=== PATIENT | female | born 1980 | race Caucasian/White ===

== ENCOUNTER 2016-08-21 20:23 | Inpatient (IN) | payer BC, OTHER ==
[~2016-08-21] VITALS: Ht 160 cm; Wt 87.3 kg
[2016-08-21 20:15] VITALS: BP 117/62
[2016-08-21] MEDS ORDERED: D5 LR IV SOLUTION 1,000 ML IV ONE (21:00)
[2016-08-21] MEDS ORDERED: diphenhydrAMINE 25 MG TAB (BENADRYL) PO PRN (21:00)
[2016-08-21] MEDS ORDERED: LACT1CAP74 PO (21:18)
[2016-08-21] MEDS ORDERED: FERR-84 PO (21:18)
[2016-08-21] MEDS ORDERED: CHOL100048 PO (21:18)
[2016-08-21] MEDS ORDERED: LANS30CA43 PO (21:18)
[2016-08-21] MEDS: MISOPROSTOL 100 MCG (CYTOTEC) TAB PV SCH (21:53)
[2016-08-21 22:05] VITALS: BP 110/62
[2016-08-21] MEDS: D5 LR IV SOLUTION 1,000 ML IV SCH (22:28)
[2016-08-21 22:35] LABS: BASOPHILS % (AUTO) 0 % (0-10); EOSINOPHILS # (AUTO) 0.2 10^3/uL (0.0-0.3); EOSINOPHILS % (AUTO) 1 % (0-10); LYMPHOCYTES # (AUTO) 2.7 X 10^3 (1.0-4.0); LYMPHOCYTES % (AUTO) 16 % (12-44); MEAN CORPUSCULAR HEMOGLOBIN 32 PG (25-34); MEAN CORPUSCULAR HGB CONC 34 G/DL (32-36); MEAN CORPUSCULAR VOLUME 94 FL (80-99); MEAN PLATELET VOLUME 10.3 FL (7.4-10.4); MONOCYTES # (AUTO) 1.2 X 10^3 (0.0-1.0); MONOCYTES % (AUTO) 7 % (0-12); NEUTROPHILS # (AUTO) 12.7 X 10^3 (1.8-7.8); NEUTROPHILS % (AUTO) 76 % (42-75); PLATELET COUNT 342 10^3/uL (130-400); RED BLOOD COUNT 3.64 10^6/uL (4.35-5.85); RED CELL DISTRIBUTION WIDTH 13.2 % (10.0-14.5); WHITE BLOOD COUNT 16.9 10^3/uL (4.3-11.0)
[2016-08-21 22:49] LABS: BAND NEUTROPHILS 0 %; BASOPHILS % (MANUAL) 0 %; EOSINOPHILS % (MANUAL) 1 %; LYMPHOCYTES % (MANUAL) 16 %; NEUTROPHILS % (MANUAL) 78 %
[2016-08-22] VITALS (72 sets, daily range): BP systolic 88–129; BP diastolic 49–79
[2016-08-22] MEDS: MISOPROSTOL 100 MCG (CYTOTEC) TAB PV SCH ×2 (01:31→05:27)
[2016-08-22] MEDS ORDERED: CATHETER FLUSH 10 ML SYR IV SCH (06:00)
[2016-08-22] MEDS ORDERED: MINERAL OIL CONCENTRATE 99.9% 15 ML UDC TOP PRN (08:00)
[2016-08-22] MEDS ORDERED: OXYTOCIN/NORMAL SALINE 500 ML IV ONE (09:02)
[2016-08-22] MEDS: OXYTOCIN/NORMAL SALINE 500 ML IV SCH (09:23)
[2016-08-22] MEDS: D5 LR IV SOLUTION 1,000 ML IV SCH ×2 (09:23→17:30)
--- NOTE | 2016-08-22 11:48 | History & Physical-OB ---
OB - Chief Complaint & HPI Date Date of Admission: Date of Admission: Aug 21, 2016 at 20:23 Chief Complaint/History OB-Reason for Admission/Chief: Induction of Labor Hx : 1 Hx Para: 0 Expected Date of Delivery: Aug 18, 2016 Gestational Age in Weeks: 40 Gestational Age in Days: 4 Indication for induction: post dates, other (AMA) Other reason for admission: 35 y/o G1 @ 40w4d by 6 wk sono here for scheduled IOL. c/b: AMA - normal cffDNA, declined NT, survey WNL Anxiety - has weaned from lexapro for several weeks, plans to restart Rh neg s/p RhoGAM first trim for bleeding and 28 wga GERD on PPI Denies complaints, fetus active, no LOF VB CTX prior to scheduled IOL. History of Labs A neg Antibody neg RI Hep B neg HIV neg RPR NR GC/CT neg/neg GBS neg Allergies and Home Medications Allergies Coded Allergies: No Known Drug Allergies (Unverified , 08/21/16) Home Medications Cholecalciferol (Vitamin D3) 1,000 Unit Capsule 1,000 UNIT PO DAILY (Reported) Ferrous Sulfate 325 Mg Tablet 325 MG PO DAILY (Reported) Lactobacillus Combination No.4 1 Each Capsule 1 EACH PO DAILY (Reported) Lansoprazole 30 Mg Capsule.dr 30 MG PO DAILY (Reported) OB - History Hx of Present Care: No Ultrasounds: Normal mid trimester US Obstetrical Complications: Other (AMA, anxiety) Medical Complications: None Information Induced Hypertension: No Maternal Gestational Diabetes: No Hemorrhage: No Obstetrical History Hx : 1 Hx Para: 0 Patient Past Medical History see above Social History/Family History Recent Infectious Disease Expo: No Alcohol Use: Denies Use Recreational Drug Use: No Immunizations Tetanus Booster (TDap): Less than 5yrs (05/31/16) Date of Influenza Vaccine: Apr 18, 2016 OB - Admission Exam Physical Exam Vitals: Vital Signs 08/22/16 08/22/16 06:15 07:00 Temp 98.1 Pulse 63 Resp 18 B/P 100/53 O2 Delivery Room Air HEENT: NCAT Heart: Rhythm Normal Abdomen: Gravid Cervical Dilatation: 1cm Effacement: 50% Station: -3 Membranes: Intact Heart Rate: 140's Accelerations: Accelerations Present Decelerations: No Decelerations Short Term Variability: Present Group Home Variability: Average (6-25) Contractions on Admission: 6-10 Minutes Apart Jack Scoring Tool (Modified) Dilation (cm): 1-2cm (1) Effacement (%): 51-79% (2) Descent/Station: -3 (0) Cervix Consistency: Medium(1) Cervix Position: Middle/Mid-Position (1) Subtract 1 point for: Nulliparity (-1) Jack Score: 4 Labs Laboratory Tests Test 08/21/16 20:30 Range/Units Band Neutrophils 0 % Basophils # (Auto) 0.0 0.0-0.1 10^3/uL Basophils % (Manual) 0 % Basophils (%) (Auto) 0 0-10 % Blood Morphology Comment NORMAL Eosinophils # (Auto) 0.2 0.0-0.3 10^3/uL Eosinophils % (Manual) 1 % Eosinophils (%) (Auto) 1 0-10 % Hematocrit 34 L 35-52 % Hemoglobin 11.7 11.5-16.0 G/DL Lymphocytes # (Auto) 2.7 1.0-4.0 X 10^3 Lymphocytes % (Manual) 16 % Lymphocytes (%) (Auto) 16 12-44 % Mean Corpuscular Hemoglobin 32 25-34 PG Mean Corpuscular Hemoglobin Concent 34 32-36 G/DL Mean Corpuscular Volume 94 80-99 FL Mean Platelet Volume 10.3 7.4-10.4 FL Monocytes # (Auto) 1.2 H 0.0-1.0 X 10^3 Monocytes % (Manual) 5 % Monocytes (%) (Auto) 7 0-12 % Neutrophils # (Auto) 12.7 H 1.8-7.8 X 10^3 Neutrophils % (Manual) 78 % Neutrophils (%) (Auto) 76 H 42-75 % Platelet Count 342 130-400 10^3/uL Red Blood Count 3.64 L 4.35-5.85 10^6/uL Red Cell Distribution Width 13.2 10.0-14.5 % White Blood Count 16.9 H 4.3-11.0 10^3/uL OB - Assessment/Plan/Diagnosis Assessment Assessment: induction of labor Plan Other Plan 35 y/o G1 @ 40w4d by 6 wk sono here for IOL due to AMA GBS neg Rh neg Anxiety S/p cytotec x 3 doses. Attempted cook balloon placement without success. Will start pitocin and consider AROM in several hours. CLD ASVD Dr. Joshua murphy Restart lexapro for anxiety MARIA EUGENIA VALERA MD Aug 22, 2016 11:48
[2016-08-22] MEDS: fentaNYL INJECTION 100 MCG/2 ML AMP IV PRN ×2 (13:33→15:25)
--- NOTE | 2016-08-22 15:10 | Progress Note-Standard ---
Standard Progress Note Progress Notes/Assess & Plan Date Seen 08/22/16 Assess & Plan/Chief Complaint HD#2 labor update note Cramping Vital Sign - Last 12Hours 08/22/16 08/22/16 08/22/16 08/22/16 04:00 05:35 06:15 07:00 Temp 98.1 Pulse 70 66 67 63 Resp 18 18 18 18 B/P 107/55 118/65 99/51 100/53 O2 Delivery Room Air Room Air Room Air Room Air Intake and Output 08/22/16 00:00 Intake Total 500 ml Balance 500 ml Gen NAD SVE: /-3 TOCO uterine irritability 35 y/o G1 @ 40w4d by 6 wk sono here for IOL due to AMA GBS neg Rh neg Anxiety S/p cytotec x 3 doses. Cook balloon placed and continue pitocin CLD ASVD Dr. Joshua murphy Restart lexapro for anxiety Labs Laboratory Tests 08/21/16 20:30 MARIA EUGENIA VALERA MD Aug 22, 2016 15:10
[2016-08-22] MEDS ORDERED: LACTATED RINGERS 1,000 ML IV ONE (21:50)
[2016-08-22] MEDS ORDERED: LIDOCAINE PF 2% 10 ML (XYLOCAINE) AMP ONE (21:55)
[2016-08-22] MEDS ORDERED: SUFENTA 0.6MCG/ML BUPIVA 0.125 100 ML ONE (21:55)
[2016-08-22] MEDS ORDERED: BUPIVACAINE 0.25% 30 ML (SENSORCAINE) VIAL ONE (21:55)
[2016-08-22] MEDS: EPIDURAL (SUFENTA 0.6MCG/ML BUPIVA 0.125%) 100 ML BAG EPI SCH (22:50)
[2016-08-22] MEDS ORDERED: LACTATED RINGERS 1,000 ML IV SCH (22:55)
[2016-08-22] MEDS ORDERED: ONDANSETRON 4 MG/2 ML (SDV) Z0FRAN IV PRN (23:00)
[2016-08-22] MEDS ORDERED: METOCLOPRAMIDE INJ 10 MG/2 ML (REGLAN) IV PRN (23:00)
[2016-08-22] MEDS ORDERED: NALOXONE 0.4 MG/ML 1 ML (NARCAN) VIAL IV PRN ×2 (23:00)
[2016-08-22] MEDS ORDERED: diphenhydrAMINE 50 MG/ML INJ (BENADRYL) IV PRN (23:00)
[2016-08-23] VITALS (58 sets, daily range): BP systolic 88–150; BP diastolic 48–74
[2016-08-23] MEDS: D5 LR IV SOLUTION 1,000 ML IV SCH ×3 (00:26→12:33)
[2016-08-23] MEDS: EPIDURAL (SUFENTA 0.6MCG/ML BUPIVA 0.125%) 100 ML BAG EPI SCH (05:10)
--- NOTE | 2016-08-23 08:11 | Progress Note-Standard ---
Standard Progress Note Progress Notes/Assess & Plan Date Seen 08/23/16 Assess & Plan/Chief Complaint HD#3 labor update note Comfortable with epidural Slept overnight VS - Last 72 Hours, by Label 08/21/16 08/21/16 08/22/16 08/22/16 20:15 22:05 01:30 02:00 Temp 97.9 97.8 97.3 Pulse 93 71 67 68 Resp 18 18 18 18 B/P 117/62 110/62 121/55 99/55 O2 Delivery Room Air Room Air 08/22/16 08/22/16 08/22/16 08/22/16 03:00 04:00 05:35 06:15 Temp 98.1 Pulse 57 70 66 67 Resp 18 18 18 18 B/P 107/53 107/55 118/65 99/51 O2 Delivery Room Air Room Air Room Air Room Air 08/22/16 08/22/16 08/22/16 08/22/16 07:00 07:30 08:00 08:30 Temp 98.5 97.0 Pulse 63 68 Resp 18 18 18 18 B/P 100/53 118/58 O2 Delivery Room Air Room Air Room Air Room Air 08/22/16 08/22/16 08/22/16 08/22/16 09:00 09:00 09:15 09:30 Pulse 68 68 68 Resp 18 18 18 18 B/P 113/56 113/56 113/56 O2 Delivery Room Air Room Air Room Air Room Air 08/22/16 08/22/16 08/22/16 08/22/16 09:45 10:00 10:15 10:30 Pulse 75 71 62 Resp 18 18 18 18 B/P 125/60 105/52 118/59 O2 Delivery Room Air Room Air Room Air Room Air 08/22/16 08/22/16 08/22/16 08/22/16 10:45 11:00 11:15 11:30 Pulse 76 74 74 66 Resp 18 18 18 18 B/P 118/59 111/58 111/57 100/49 O2 Delivery Room Air Room Air Room Air Room Air 08/22/16 08/22/16 08/22/16 08/22/16 11:45 12:00 12:00 12:15 Pulse 64 61 76 65 Resp 18 18 18 18 B/P 93/51 91/50 113/56 91/53 O2 Delivery Room Air Room Air Room Air Room Air 2/20/17 2/20/17 2/20/17 2/20/17 12:30 12:45 13:00 13:15 Temp 98.7 Pulse 66 107 65 76 Resp 18 18 18 18 B/P 104/59 107/56 114/56 116/56 O2 Delivery Room Air Room Air Room Air Room Air 2/20/17 2/20/17 2/20/17 2/20/17 13:30 13:45 14:00 14:15 Pulse 55 69 55 68 Resp 18 18 18 18 B/P 119/56 114/79 105/57 109/51 O2 Delivery Room Air Room Air Room Air Room Air 2/20/17 2/20/17 2/20/17 2/20/17 14:30 14:45 15:00 15:15 Pulse 55 54 62 66 Resp 18 18 18 18 B/P 96/54 95/54 110/54 110/53 O2 Delivery Room Air Room Air Room Air Room Air 220/17 2/20/17 2/20/17 2/2017 15:30 15:45 16:00 19:15 Pulse 63 65 64 62 Resp 18 18 18 18 B/P 117/56 112/63 105/53 115/55 O2 Delivery Room Air Room Air Room Air Room Air 220/17 2/20/17 2/20/17 2/2017 19:30 19:45 20:00 20:15 Pulse 81 63 70 75 Resp 18 18 18 18 B/P 115/58 119/57 111/67 108/61 O2 Delivery Room Air Room Air Room Air Room Air 220/17 2/20/17 2/20/17 2/20/17 20:30 20:45 21:00 21:15 Temp 98.4 Pulse 77 71 68 Resp 18 18 18 B/P 111/55 113/55 129/55 O2 Delivery Room Air Room Air Room Air Room Air 2/20/17 2/20/17 2/20/17 2/20/17 21:30 21:45 22:00 22:15 Temp 98.1 Pulse 65 65 77 77 Resp 18 18 18 18 B/P 95/52 88/50 110/52 107/54 O2 Delivery Room Air Room Air Room Air Room Air 2/20/17 2/20/17 2/20/17 2/20/17 22:30 22:34 22:37 22:40 Pulse 73 66 74 75 Resp 18 18 18 18 B/P 117/56 114/58 119/64 110/56 O2 Delivery Room Air Room Air Room Air Room Air 08/22/16 08/22/16 08/22/16 08/22/16 22:43 22:46 22:49 22:52 Pulse 75 78 66 71 Resp 18 18 18 18 B/P 103/56 104/55 99/56 96/52 O2 Delivery Room Air Room Air Room Air Room Air 08/22/16 08/22/16 08/22/16 08/22/16 22:55 22:58 23:04 23:08 Pulse 75 71 67 Resp 18 18 18 B/P 96/51 105/53 93/51 Pulse Ox 98 O2 Delivery Room Air Room Air Room Air Room Air 08/22/16 08/22/16 08/22/16 08/22/16 23:10 23:13 23:16 23:19 Pulse 65 65 60 66 Resp 18 18 18 18 B/P 93/52 94/52 101/59 99/55 O2 Delivery Room Air Room Air Room Air Room Air 08/22/16 08/23/16 08/23/16 08/23/16 23:45 00:00 00:15 00:30 Pulse 56 56 57 57 Resp 18 18 18 18 B/P 106/55 88/53 90/51 90/48 O2 Delivery Room Air Room Air Room Air Room Air 08/23/16 08/23/16 08/23/16 08/23/16 00:45 01:00 01:15 01:30 Pulse 52 63 63 52 Resp 18 18 18 18 B/P 94/55 94/51 88/51 99/55 O2 Delivery Room Air Room Air Room Air Room Air 08/23/16 08/23/16 08/23/16 08/23/16 01:45 02:00 02:15 02:30 Pulse 59 63 58 59 Resp 18 18 18 18 B/P 119/65 110/59 104/59 106/52 O2 Delivery Room Air Room Air Room Air Room Air 08/23/16 08/23/16 08/23/16 08/23/16 02:45 03:00 03:15 03:30 Pulse 60 56 72 55 Resp 18 18 18 18 B/P 113/57 105/58 113/63 106/55 O2 Delivery Room Air Room Air Room Air Room Air 08/23/16 08/23/16 08/23/16 08/23/16 03:45 04:00 04:15 04:30 Pulse 59 54 51 51 Resp 18 18 18 18 B/P 102/55 106/58 107/56 103/55 O2 Delivery Room Air Room Air Room Air Room Air 08/23/16 08/23/16 08/23/16 08/23/16 04:45 05:00 05:15 05:30 Temp 98.4 Pulse 55 53 58 Resp 18 18 18 B/P 100/52 106/56 96/51 O2 Delivery Room Air Room Air Room Air 08/23/16 08/23/16 08/23/16 08/23/16 05:45 06:00 06:15 06:30 Pulse 54 54 53 57 Resp 18 18 18 18 B/P 103/55 101/55 98/53 102/51 O2 Delivery Room Air Room Air Room Air Room Air 08/23/16 08/23/16 06:45 07:00 Pulse 58 61 Resp 18 18 B/P 107/59 102/53 O2 Delivery Room Air Room Air Gen NAD SVE: /-1 FHT 140/mod dulce/reactive TOCO 08/12 35 y/o G1 @ 40w5d by 6 wk sono here for IOL due to AMA GBS neg Rh neg Anxiety S/p cytotec x 3 doses. Cook balloon placed and removed after 12 hours, continue pitocin. Attempted AROM this AM but no palpable BOW CLD ASVD Dr. Joshua murphy Restart lexapro for anxiety Labs Laboratory Tests 08/21/16 20:30 MARIA EUGENIA VALEAR MD Aug 23, 2016 08:11
[2016-08-23] MEDS ORDERED: LIDOCAINE/EPI 1%-1:200,000 (XYLOCAINE) 30 ML VIAL ONE (11:53)
[2016-08-23] MEDS: OXYTOCIN/NORMAL SALINE 500 ML IV SCH ×4 (12:33→17:46)
[2016-08-23] MEDS ORDERED: LIDOCAINE/EPI 1%-1:200,000 (XYLOCAINE) 30 ML VIAL INJ ONE (12:45)
[2016-08-23] MEDS ORDERED: fentaNYL INJECTION 100 MCG/2 ML AMP IVP PRN (15:45)
[2016-08-23] MEDS ORDERED: CITRIC ACID/SOB CIT (BICITRA) 30 ML UDC ONE (15:50)
[2016-08-23] MEDS ORDERED: OXYTOCIN/NORMAL SALINE 1,000 ML IV ONE (15:50)
[2016-08-23] MEDS ORDERED: morphine PF (DURAMORPH) 10 MG/10 ML AMP ONE (15:50)
[2016-08-23] MEDS ORDERED: ONDANSETRON 4 MG/2 ML (SDV) Z0FRAN ONE (15:50)
[2016-08-23] MEDS ORDERED: FAMOTIDINE 20MG/2ML IV (PEPCID) ONE (15:51)
--- NOTE | 2016-08-23 15:57 | Progress Note-Standard ---
Standard Progress Note Progress Notes/Assess & Plan Date Seen 08/23/16 Assess & Plan/Chief Complaint HD#3 Called to assess after several hours of pushing without success. Position changes attempted. Epidural turned off for over two hours. Pt is asking for delivery. SVE complete/-1 station, caput noted to 0 station (no change since last exam). FHR reactive. I discussed with Clair and her that at this point, with no descent for several hours of pushing, I do recommend delivery at this time. Risks , benefits and alternatives discussed including bleeding, infection, damage to surrounding structures of mother/fetus. Clair agrees with the plan. To OR for primary CD. [employer] aware and on unit. Labs Laboratory Tests 08/21/16 20:30 MARIA EUGENIA VALERA MD Aug 23, 2016 15:57
--- NOTE | 2016-08-23 16:04 | Cesarean Section Operative ---
Procedure Procedure Note Date of Procedure: August 23, 2016 Pre-operative Diagnosis: Shey Bhakta is a 35 y/o G1 @ 40w5d with failed induction of labor, arrest of descent, AMA, Rh negative Post-operative Diagnosis: Same Procedure: Primary low transverse section Physician: Angie Mae MD Estimated blood loss: 400 mL Specimens: Placenta to pathology, cord blood/gas to lab Disposition: Stable to recovery room Findings: Viable female infant, Apgars 8/9, weight 7lb1oz, intact placenta, 3vc, normal appearing uterus, tubes, and ovaries. Indications: Shey Bhakta is a 35 y/o G1 @ 40w5d presenting for scheduled induction of labor. She underwent cervical ripening with cytotec and subsequently a cook balloon for 12 hours. Pitocin was started for induction. SROM occurred with clear fluid. Epidural was placed for analgesia. She progressed to completion and pushed effectively, however the head never descended past -1 station. Procedure Details: The patient was seen in pre-op and the procedure was discussed with the patient in full, including the risks, benefits, and alternatives. All questions were answered. The patient was taken to the operating room and a time out was performed, verifying patient and procedure. After spinal anesthesia was placed by our anesthesia colleagues, the patient was placed in the dorsal supine with leftward tilt for uterine displacement. Her abdomen was then prepped and draped in the typical sterile fashion. A Pfannenstiel skin incision was made using a scalpel and carried down through the underlying fascia. The fascia was incised in the midline and tented up using Nelly clamps. On both the inferior and superior fascia side the rectus muscle was dissected off bluntly and sharply using Milan scissors. The peritoneum was identified and entered bluntly in the midline. This was then stretched laterally using manual strength. After entering the abdominal cavity and confirming lack of intraperitoneal adhesions, a large Blake retractor was placed and the lower uterine segment was visualized. A bladder flap was created with the use of Metzenbaum scissors. A scalpel was utilized to make a low transverse uterine incision. The 's head was grasped and brought to the level of the incision. Fundal pressure was applied and infant was delivered with the help of the silastic vacuum device. Mouth and nares were suctioned with bulb suction. After the umbilical cord was clamped and cut, the was handed off to the pediatric staff. A sample of cord blood was then obtained. The placenta was delivered intact via uterine massage. The uterus was cleared of all clots and debris. The uterine incision was closed using 0 Vicryl in a running locked fashion. A second imbricated layer was placed using 0 Vicryl in a running fashion as well. The uterus was flexed forward and the posterior rectouterine space was inspected and cleared of all clots and debris. Again the hysterotomy site was examined and hemostasis was observed. The bilateral tubes and ovaries appeared normal. The abdominal gutters were cleared of all clots and debris. A final check of the uterine incision showed it to be hemostatic. Intercede was placed along the hysterotomy. The peritoneum was closed using 3- 0 Vicryl in a running fashion. The fascia was closed with 0 Vicryl in a running fashion. The subcutaneous space was hemostatic, and irrigated. The subcutaneous space was closed with 3-0 Vicryl in several single interrupted stitches. The skin was then closed using 4-0 Monocryl in a running subcuticular fashion. The skin edges were reapproximated together and were hemostatic. A pressure dressing was applied. All sponge, lap and needle counts were correct at the end of the procedure per nursing. ANGIE MAE MD Aug 23, 2016 16:04
[2016-08-23] MEDS ORDERED: KETOROLAC 30 MG/ML VIAL ONE (16:38)
[2016-08-23] MEDS ORDERED: ceFAZolin 1,000 MG (ANCEF) VIAL ONE (16:38)
[2016-08-23] MEDS ORDERED: LACTATED RINGERS 1,000 ML IV PRN ×2 (16:53)
[2016-08-23] MEDS ORDERED: CITRIC ACID/SOB CIT (BICITRA) 30 ML UDC PO ONE (17:00)
[2016-08-23] MEDS ORDERED: METOCLOPRAMIDE INJ 10 MG/2 ML (REGLAN) IV ONE (17:00)
[2016-08-23] MEDS ORDERED: LACTATED RINGERS 1,000 ML IV ONE (17:00)
[2016-08-23] MEDS ORDERED: FAMOTIDINE 20MG/2ML IV (PEPCID) IV ONE (17:00)
[2016-08-23] MEDS ORDERED: ONDANSETRON 4 MG/2 ML (SDV) Z0FRAN IV PRN (17:15)
[2016-08-23] MEDS ORDERED: morphine PF (DURAMORPH) 10 MG/10 ML AMP INJ ONE (17:15)
[2016-08-23] MEDS ORDERED: NALOXONE 0.4 MG/ML 1 ML (NARCAN) VIAL IV PRN (17:15)
[2016-08-23] MEDS ORDERED: fentaNYL INJECTION 100 MCG/2 ML AMP INJ ONE (17:15)
[2016-08-23] MEDS ORDERED: ceFAZolin 2 GM/50 ML NS 50 ML IV ONE (17:15)
[2016-08-23] MEDS ORDERED: ESCI10TA PO (17:19)
[2016-08-23] MEDS ORDERED: IBUP-1773 PO (17:19)
[2016-08-23] MEDS ORDERED: OXYC-197 PO (17:19)
[2016-08-23] MEDS ORDERED: DOCU-143 PO (17:22)
--- NOTE | 2016-08-23 17:35 | Discharge Inst-Women's Service ---
Discharge Inst-Women's Serv Depart Medication/Instructions New, Converted or Re-Newed RX: RX on Chart Final Diagnosis Term intrauterine , advanced maternal age, arrest of descent, primary delivery Consults/Follow Up Additional Follow Up: Yes Orders/Referrals 10-[address] Mae [address] Mae Activity Activity: Activity as Tolerated Driving Instructions: No Driving for 1 Week (or while taking narcotic pain medications) NO SMOKING: NO SMOKING Nothing Inside Vagina: No Douching, No Maybee, No Tampons Other Activity No strenuous activity, no lifting > 10 lb Diet Discharge Diet: No Restrictions Symptoms to Report to : Bleeding Excessive, Pain Increased, Fever Over 101 Degrees F, Pain/Pressure in Chest, Vaginal Bleeding Increase, Dizziness/Fainting , Nausea/Vomiting, Shortness of Breath For Any Problems or Questions: Contact Your Physician, Go to Emergency Room Skin/Wound Care Infection Signs and Symptoms: Increased Redness, Foul Odor of Wound, Increased Drainage Operative Area Clean and Dry: Keep Incision Clean/Dry Stitches/Karina/Dermabond: Dermabond Bathing Instructions: MARIA EUGENIA Coates MD Aug 23, 2016 17:35
[2016-08-23] MEDS ORDERED: TETANUS,DIPTH,PERTUSS P/F (BOOSTRIX) 0.5 ML VIAL IM SCH (17:45)
[2016-08-23] MEDS ORDERED: ONDANSETRON 4 MG/2 ML (SDV) Z0FRAN IVP PRN (17:45)
[2016-08-23] MEDS ORDERED: MEASLES,MUMPS,RUBELLA 1 EA INJ SC SCH (17:45)
[2016-08-23] MEDS: DOCUSATE SODIUM 100 MG (COLACE) CAP PO SCH (21:55)
[2016-08-23] MEDS: KETOROLAC 30 MG/ML VIAL IVP SCH ×2 (21:55→23:50)
[2016-08-23] MEDS ORDERED: CATHETER FLUSH 10 ML SYR IV SCH (22:00)
[2016-08-24 01:05] VITALS: BP 100/53
[2016-08-24] MEDS ORDERED: IBUPROFEN 800 MG (MOTRIN) TAB PO ONE ×2 (03:16→12:05)
[2016-08-24] MEDS: IBUPROFEN 800 MG (MOTRIN) TAB PO SCH ×2 (03:58→12:08)
[2016-08-24 05:20] VITALS: BP 101/59
[2016-08-24] MEDS: KETOROLAC 30 MG/ML VIAL IVP SCH ×2 (05:45→11:45)
[2016-08-24 05:59] LABS: BASOPHILS % (AUTO) 0 % (0-10); EOSINOPHILS % (AUTO) 0 % (0-10); LYMPHOCYTES # (AUTO) 2.3 X 10^3 (1.0-4.0); LYMPHOCYTES % (AUTO) 9 % (12-44); MEAN CORPUSCULAR HEMOGLOBIN 32 PG (25-34); MEAN CORPUSCULAR HGB CONC 34 G/DL (32-36); MEAN CORPUSCULAR VOLUME 95 FL (80-99); MEAN PLATELET VOLUME 10.3 FL (7.4-10.4); MONOCYTES # (AUTO) 1.9 X 10^3 (0.0-1.0); MONOCYTES % (AUTO) 7 % (0-12); NEUTROPHILS # (AUTO) 21.7 X 10^3 (1.8-7.8); NEUTROPHILS % (AUTO) 83 % (42-75); PLATELET COUNT 288 10^3/uL (130-400); RED BLOOD COUNT 3.09 10^6/uL (4.35-5.85)
--- NOTE | 2016-08-24 08:20 | Postpartum Progress Note ---
Post Op Post-operative Day #1 Subjective: Patient is without complaints. Ambulating, voiding after zapata removed. Tolerating a regular diet without nausea or vomiting. Normal lochia. Pain is well controlled with oral pain medications. Passing flatus. Breast feeding. Objective: Vital Sign - Last 12Hours 08/23/16 08/24/16 08/24/16 22:01 01:05 05:20 Temp 98.3 98.6 97.7 Pulse 67 72 72 Resp 18 18 18 B/P 102/62 100/53 101/59 Pulse Ox 96 97 95 O2 Delivery Room Air Room Air Room Air Intake and Output 08/24/16 00:00 Intake Total 2450 ml Output Total 755 ml Balance 1695 ml Physical Exam: General - Alert and oriented, no apparent distress Abdomen - Soft, appropriately tender to palpation, non-distended, fundus firm at umbilicus Incision - clean, dry and intact; no erythema or induration, no drainage Extremities - no edema, negative Alexandra's bilaterally Laboratory Tests 08/24/16 05:13: Basophils # (Auto) 0.0, Basophils (%) (Auto) 0, Eosinophils # (Auto) 0.0, Eosinophils (%) (Auto) 0, Hematocrit 29L, Hemoglobin 9.9L, Lymphocytes # (Auto) 2.3, Lymphocytes (%) (Auto) 9L, Mean Corpuscular Hemoglobin 32, Mean Corpuscular Hemoglobin Concent 34, Mean Corpuscular Volume 95, Mean Platelet Volume 10.3, Monocytes # (Auto) 1.9H, Monocytes (%) (Auto) 7, Neutrophils # ( Auto) 21.7H, Neutrophils (%) (Auto) 83H, Platelet Count 288, Red Blood Count 3.09L, Red Cell Distribution Width 13.0, White Blood Count 26.0H Assessment: 35 y/o post-operative day # 1, status post PLTCS. Recovering well, hemodynamically stable Acute blood loss anemia Hgb 9.9 Rh neg, infant Rh neg Anxiety GERD Plan: Routine post-operative care. Encourage breast feeding. Encourage ambulation. VTE prophylaxis: SCDs. Ferrous sulfate supplementation. Lexapro for anxiety PPI for GERD Plan for discharge tomorrow. Vitals - Labs Vital Signs - I&O Vital Signs Date Time Temp Pulse Resp B/P Pulse Ox O2 Delivery O2 Flow Rate FiO2 08/24/16 05:20 97.7 72 18 101/59 95 Room Air 08/24/16 01:05 98.6 72 18 100/53 97 Room Air 08/23/16 22:01 98.3 67 18 102/62 96 Room Air 08/23/16 18:00 98.2 74 20 94/58 Room Air I & O 08/24/16 07:00 Intake Total 3050 ml Output Total 1155 ml Balance 1895 ml Labs Laboratory Tests 08/24/16 05:13: Basophils # (Auto) 0.0, Basophils (%) (Auto) 0, Eosinophils # (Auto) 0.0, Eosinophils (%) (Auto) 0, Hematocrit 29L, Hemoglobin 9.9L, Lymphocytes # (Auto) 2.3, Lymphocytes (%) (Auto) 9L, Mean Corpuscular Hemoglobin 32, Mean Corpuscular Hemoglobin Concent 34, Mean Corpuscular Volume 95, Mean Platelet Volume 10.3, Monocytes # (Auto) 1.9H, Monocytes (%) (Auto) 7, Neutrophils # ( Auto) 21.7H, Neutrophils (%) (Auto) 83H, Platelet Count 288, Red Blood Count 3.09L, Red Cell Distribution Width 13.0, White Blood Count 26.0H MARIA EUGENIA VALERA MD Aug 24, 2016 08:20
[2016-08-24] MEDS: DOCUSATE SODIUM 100 MG (COLACE) CAP PO SCH ×2 (08:40→20:53)
[2016-08-24 08:44] VITALS: BP 111/63
[2016-08-24] MEDS ORDERED: PANTOPRAZOLE 40 MG (PROTONIX) TAB PO SCH (09:00)
--- NOTE | 2016-08-24 10:25 | Anesthesia-Regional Post-Op ---
Regional Patient Condition Mental Status: Alert, Oriented x3 Circulation: Same as Pre-Op Headache: Absent Sensation: Full Recovery Motor Block: Absent Post Op Complications Complications None Follow Up Care/Instructions Patient Instructions None needed. Anesthesia/Patient Condition Patient is doing well, no complaints, stable vital signs, no apparent adverse anesthesia problems. No complications reported per nursing. D/C home per [facility] Criteria: No MICHELLE DORAN CRNA Aug 24, 2016 10:25
[2016-08-24] MEDS ORDERED: PATIENT MAY USE OWN MED,SINGLE MED PO SCH (10:30)
[2016-08-24] MEDS: LANSOPRAZOLE 30 MG CAPSULE PO SCH (11:38)
[2016-08-24] MEDS: ESCITALOPRAM 10 MG TABLET PO SCH (11:39)
[2016-08-24 12:04] VITALS: BP 111/70
[2016-08-24] MEDS: oxyCODONE/APAP 5/325MG (PERCOCET 5) TABLET PO PRN ×2 (12:08→17:11)
[2016-08-24 17:07] VITALS: BP 110/75
[2016-08-24 20:54] VITALS: BP 114/77
[2016-08-25] MEDS: IBUPROFEN 800 MG (MOTRIN) TAB PO SCH ×2 (00:43→06:33)
[2016-08-25 00:45] VITALS: BP 97/55
[2016-08-25] MEDS: oxyCODONE/APAP 5/325MG (PERCOCET 5) TABLET PO PRN (00:49)
[2016-08-25] MEDS ORDERED: PANTOPRAZOLE 40 MG (PROTONIX) TAB PO SCH (07:00)
[2016-08-25] MEDS ORDERED: FERROUS SULF 325 MG (IRON) TAB PO SCH (07:00)
--- NOTE | 2016-08-25 08:11 | Postpartum Progress Note ---
Post Op Post-operative Day #2 Subjective: Patient is without complaints. Ambulating, voiding after zapata. Tolerating a regular diet without nausea or vomiting. Normal lochia. Pain is well controlled with oral pain medications. Passing flatus. Breast feeding and supplementing. Does have some edema. No chest pain, SOA. Wants to discharge today if able. Objective: VS - Last 72 Hours, by Label 08/22/16 08/22/16 08/22/16 08/22/16 08:30 09:00 09:00 09:15 Pulse 68 68 68 Resp 18 18 18 18 B/P 113/56 113/56 113/56 O2 Delivery Room Air Room Air Room Air Room Air 08/22/16 08/22/16 208/22/16 09:30 09:45 10:00 10:15 Pulse 75 71 Resp 18 18 18 18 B/P 125/60 105/52 O2 Delivery Room Air Room Air Room Air Room Air 08/22/16 08/22/16 08/22/16 08/22/16 10:30 10:45 11:00 11:15 Pulse 62 76 74 74 Resp 18 18 18 18 B/P 118/59 118/59 111/58 111/57 O2 Delivery Room Air Room Air Room Air Room Air 08/22/16 08/22/16 08/22/16 08/22/16 11:30 11:45 12:00 12:00 Pulse 66 64 61 76 Resp 18 18 18 18 B/P 100/49 93/51 91/50 113/56 O2 Delivery Room Air Room Air Room Air Room Air 08/22/16 08/22/16 08/22/16 08/22/16 12:15 12:30 12:45 13:00 Temp 98.7 Pulse 65 66 107 65 Resp 18 18 18 18 B/P 91/53 104/59 107/56 114/56 O2 Delivery Room Air Room Air Room Air Room Air 08/22/16 2/ 2/08/22/16 13:15 13:30 13:45 14:00 Pulse 76 55 69 55 Resp 18 18 18 18 B/P 116/56 119/56 114/79 105/57 O2 Delivery Room Air Room Air Room Air Room Air 08/22/16 08/22/16 208/22/16 14:15 14:30 14:45 15:00 Pulse 68 55 54 62 Resp 18 18 18 18 B/P 109/51 96/54 95/54 110/54 O2 Delivery Room Air Room Air Room Air Room Air 08/22/16 2/ 2//17 2/ 15:15 15:30 15:45 16:00 Pulse 66 63 65 64 Resp 18 18 18 18 B/P 110/53 117/56 112/63 105/53 O2 Delivery Room Air Room Air Room Air Room Air 08/22/16 2 2//17 2 16:45 17:00 17:15 17:30 Pulse 67 60 130 Resp 18 18 18 18 B/P 115/57 106/65 104/56 O2 Delivery Room Air Room Air Room Air Room Air 08/22/16 2 2 2 17:45 18:00 18:15 18:30 Temp 98.3 Pulse 62 61 59 59 Resp 18 18 18 18 B/P 103/55 105/56 93/52 93/52 O2 Delivery Room Air Room Air Room Air Room Air 08/22/16 08/22/16 2 2 18:45 19:00 19:15 19:30 Pulse 60 61 62 81 Resp 18 18 18 18 B/P 106/51 112/57 115/55 115/58 O2 Delivery Room Air Room Air Room Air Room Air 08/22/16 08/22/16 2/ 2 19:45 20:00 20:15 20:30 Pulse 63 70 75 77 Resp 18 18 18 18 B/P 119/57 111/67 108/61 111/55 O2 Delivery Room Air Room Air Room Air Room Air 08/22/16 2/17 2/20/17 220 20:45 21:00 21:15 21:30 Temp 98.4 Pulse 71 68 65 Resp 18 18 18 B/P 113/55 129/55 95/52 O2 Delivery Room Air Room Air Room Air Room Air 08/22/16 2 2/20/ 2/20 21:45 22:00 22:15 22:30 Temp 98.1 Pulse 65 77 77 73 Resp 18 18 18 18 B/P 88/50 110/52 107/54 117/56 O2 Delivery Room Air Room Air Room Air Room Air 08/22/16 08/22/16 08/22/16 08/22/16 22:34 22:37 22:40 22:43 Pulse 66 74 75 75 Resp 18 18 18 18 B/P 114/58 119/64 110/56 103/56 O2 Delivery Room Air Room Air Room Air Room Air 08/22/16 08/22/16 08/22/16 08/22/16 22:46 22:49 22:52 22:55 Pulse 78 66 71 75 Resp 18 18 18 18 B/P 104/55 99/56 96/52 96/51 O2 Delivery Room Air Room Air Room Air Room Air 08/22/16 08/22/16 08/22/16 08/22/16 22:58 23:04 23:08 23:10 Pulse 71 67 65 Resp 18 18 18 B/P 105/53 93/51 93/52 Pulse Ox 98 O2 Delivery Room Air Room Air Room Air Room Air 08/22/16 08/22/16 08/22/16 08/22/16 23:13 23:16 23:19 23:45 Pulse 65 60 66 56 Resp 18 18 18 18 B/P 94/52 101/59 99/55 106/55 O2 Delivery Room Air Room Air Room Air Room Air 08/23/16 08/23/16 08/23/16 08/23/16 00:00 00:15 00:30 00:45 Pulse 56 57 57 52 Resp 18 18 18 18 B/P 88/53 90/51 90/48 94/55 O2 Delivery Room Air Room Air Room Air Room Air 08/23/16 08/23/16 08/23/16 08/23/16 01:00 01:15 01:30 01:45 Pulse 63 63 52 59 Resp 18 18 18 18 B/P 94/51 88/51 99/55 119/65 O2 Delivery Room Air Room Air Room Air Room Air 08/23/16 08/23/16 08/23/16 08/23/16 02:00 02:15 02:30 02:45 Pulse 63 58 59 60 Resp 18 18 18 18 B/P 110/59 104/59 106/52 113/57 O2 Delivery Room Air Room Air Room Air Room Air 08/23/16 08/23/16 08/23/1608/23/17 03:00 03:15 03:30 03:45 Pulse 56 72 55 59 Resp 18 18 18 18 B/P 105/58 113/63 106/55 102/55 O2 Delivery Room Air Room Air Room Air Room Air 08/23/16 08/23/16 08/23/16 08/23/16 04:00 04:15 04:30 04:45 Temp 98.4 Pulse 54 51 51 Resp 18 18 18 B/P 106/58 107/56 103/55 O2 Delivery Room Air Room Air Room Air 08/23/16 08/23/16 08/23/16 08/23/16 05:00 05:15 05:30 05:45 Pulse 55 53 58 54 Resp 18 18 18 18 B/P 100/52 106/56 96/51 103/55 O2 Delivery Room Air Room Air Room Air Room Air 08/23/16 08/23/16 08/23/16 08/23/16 06:00 06:15 06:30 06:45 Pulse 54 53 57 58 Resp 18 18 18 18 B/P 101/55 98/53 102/51 107/59 O2 Delivery Room Air Room Air Room Air Room Air 08/23/16 08/23/16 08/23/16 08/23/16 07:00 07:15 07:30 07:45 Temp 98.4 Pulse 61 63 57 63 Resp 18 18 18 18 B/P 102/53 105/65 109/57 105/74 O2 Delivery Room Air Room Air Room Air Room Air 08/23/16 08/23/16 08/23/16 08/23/16 08:00 08:15 08:30 08:45 Pulse 61 61 67 Resp 18 18 18 18 B/P 109/66 115/67 128/67 O2 Delivery Room Air Room Air Room Air Room Air 08/23/16 08/23/16 08/23/16 08/23/16 09:00 09:15 09:30 09:45 Pulse 65 75 67 67 Resp 18 18 18 18 B/P 115/68 117/65 111/70 116/65 O2 Delivery Room Air Room Air Room Air Room Air 08/23/16 08/23/16 08/23/16 08/23/16 10:00 10:15 10:30 10:45 Pulse 72 69 67 68 Resp 18 18 18 18 B/P 118/63 113/60 116/65 114/67 O2 Delivery Room Air Room Air Room Air Room Air 08/23/16 08/23/16 08/23/16 08/23/16 11:00 11:15 11:30 11:45 Temp 97.9 Pulse 71 64 70 70 Resp 18 18 18 18 B/P 110/67 118/64 124/70 121/68 O2 Delivery Room Air Room Air Room Air Room Air 08/23/16 08/23/16 08/23/16 08/23/16 12:00 12:15 12:30 12:45 Temp 98.4 Pulse 71 80 61 Resp 18 18 20 20 B/P 118/67 107/55 93/54 O2 Delivery Room Air Room Air Room Air Room Air 08/23/16 08/23/16 08/23/16 08/23/16 13:00 13:15 13:30 13:45 Pulse 75 67 76 Resp 20 20 20 20 B/P 112/54 112/59 123/61 O2 Delivery Room Air Room Air Room Air Room Air 08/23/16 08/23/16 08/23/16 08/23/16 14:00 14:15 14:30 14:45 Pulse 60 67 67 93 Resp 20 20 20 20 B/P 132/68 122/68 122/68 150/62 O2 Delivery Non Rebreather Non Rebreather Non Rebreather Non Rebreather O2 Flow Rate 15.00 15.00 15.00 15.00 08/23/16 08/23/16 08/23/16 08/23/16 15:00 15:15 15:30 15:45 Resp 20 20 20 20 B/P O2 Delivery Non Rebreather Non Rebreather Non Rebreather Non Rebreather O2 Flow Rate 15.00 15.00 15.00 15.00 08/23/16 08/23/16 08/23/16 08/24/16 16:00 18:00 22:01 01:05 Temp 98.2 98.3 98.6 Pulse 74 67 72 Resp 20 20 18 18 B/P 94/58 102/62 100/53 Pulse Ox 96 97 O2 Delivery Non Rebreather Room Air Room Air Room Air O2 Flow Rate 15.00 08/24/16 08/24/16 08/24/16 08/24/16 05:20 08:44 12:04 17:07 Temp 97.7 98.0 97.9 98.2 Pulse 72 70 76 73 Resp 18 18 18 18 B/P 101/59 111/63 111/70 110/75 Pulse Ox 95 97 96 96 O2 Delivery Room Air Room Air Room Air Room Air 08/24/16 08/25/16 20:54 00:45 Temp 97.7 97.6 Pulse 66 68 Resp 18 18 B/P 114/77 97/55 Pulse Ox 97 94 O2 Delivery Room Air Room Air Physical Exam: General - Alert and oriented, no apparent distress Abdomen - Soft, appropriately tender to palpation, non-distended, fundus firm at umbilicus Incision - clean, dry and intact; no erythema or induration, no drainage Extremities - 1+ pitting edema bilat LE, neg Alexandra's sign, negative Alexandra's bilaterally Assessment: 35 y/o post-operative day # 2, status post PLTCS. Recovering well, hemodynamically stable Acute blood loss anemia Hgb 9.9 Rh neg, infant Rh neg Anxiety GERD Plan: Routine post-operative care. Encourage breast feeding. Encourage ambulation. VTE prophylaxis: SCDs. Ferrous sulfate supplementation. Lexapro for anxiety PPI for GERD Plan for discharge today, f/u with me in 10-14 days for incision check. Vitals - Labs Vital Signs - I&O Vital Signs Date Time Temp Pulse Resp B/P Pulse Ox O2 Delivery O2 Flow Rate FiO2 08/25/16 00:45 97.6 68 18 97/55 94 Room Air 08/24/16 20:54 97.7 66 18 114/77 97 Room Air 08/24/16 17:07 98.2 73 18 110/75 96 Room Air 08/24/16 12:04 97.9 76 18 111/70 96 Room Air 08/24/16 08:44 98.0 70 18 111/63 97 Room Air I & O 08/25/16 07:00 Intake Total 1600 ml Output Total 4950 ml Balance -3350 ml MARIA EUGENIA VALERA MD Aug 25, 2016 08:11
[2016-08-25] MEDS: DOCUSATE SODIUM 100 MG (COLACE) CAP PO SCH (09:16)
[2016-08-25] MEDS: ESCITALOPRAM 10 MG TABLET PO SCH (09:17)
[2016-08-25] MEDS: LANSOPRAZOLE 30 MG CAPSULE PO SCH (09:17)
[2016-08-25 09:25] VITALS: BP 121/68
[2016-08-25 12:40] VITALS: BP 97/55
== END 2016-08-25 12:40 | disposition home or self-care (01) | DRG 765 ==
LOC: LDRP 20:23 → MERGE 20:23 → WS 08-23 20:43
PROVIDERS: ADMIT Obstetrics & Gynecology; ATTEND Obstetrics & Gynecology
PROC: 3E0P05Z Introduction of Adhesion Barrier into Female Reproductive, Open Approach (ICD-10-PCS; 2016-08-23)
PROC: 10D00Z1 Extraction of Products of Conception, Low, Open Approach (ICD-10-PCS; principal; 2016-08-23 16:05)
DX: O48.0 Post-term pregnancy (principal); O66.40 Failed trial of labor, unspecified; O99.03 Anemia complicating the puerperium; D62 Acute posthemorrhagic anemia; O99.343 Other mental disorders complicating pregnancy, third trimester; F41.9 Anxiety disorder, unspecified; O99.613 Diseases of the digestive system complicating pregnancy, third trimester; K21.9 Gastro-esophageal reflux disease without esophagitis; O09.513 Supervision of elderly primigravida, third trimester; Z3A.40 40 weeks gestation of pregnancy; Z37.0 Single live birth
CPT/HCPCS: 36415; 85007; 85025; 85027; 86850; 86900; 86901; 94664

== ENCOUNTER 2018-02-13 19:15 | Emergency (ER) | payer BC ==
[~2018-02-13] VITALS: Ht 167.6 cm; Wt 77.1 kg
[~2018-02-13 19:15] MED LIST: CHOL100048 PO; DOCU-143 PO; ESCI10TA PO; FERR-84 PO; IBUP-1773 PO; LACT1CAP74 PO; LANS30CA43 PO; OXYC-197 PO
--- OUTSIDE RECORDS SUMMARY | 2018-02-13 19:20 | XMS REPORT | Continuity of Care Document ---
Author Author [facility] Organization [facility] Address Unknown Phone Unavailable Support Name Relationship Address Phone MARIA EUGENIA MAE MD Caregiver [phone] [facility] [place], [place] [phone] JAMEY SHEIKH Next Of Kin [address] [place], [place] [address] Insurance Providers Payer Name Policy Number Subscriber Name Relationship [facility] [id number] Bottle AssemblerShey cacnhola 18 Self / Same As Patient Advance Directives Directive Response Recorded Date/Time Advance Directives No 08/21/16 8:30pm Resuscitation Status Full Code 08/21/16 8:30pm Problems No problem information available. Medications Current Home Medications Medication Dose Units Route Directions Days/Qty Instructions Start Date Lansoprazole 30 Mg 30 Mg Oral Daily 08/21/16 Ferrous Sulfate 325 Mg 325 Mg Oral Daily 08/21/16 Cholecalciferol (Vitamin D3) 1,000 Unit 1,000 Unit Oral Daily Lactobacillus Combination No.4 1 Each 1 Each Oral Daily 08/21/16 Escitalopram Oxalate 10 Mg 10 Mg Oral Daily 90 08/23/16 Oxycodone Hcl/Acetaminophen 1 Each 1-2 Each Oral Every 4HRS as needed for Pain 40 08/23/16 Ibuprofen 600 Mg 600 Mg Oral Every 6 Hours as needed for Pain 40 08/23 Docusate Sodium 100 Mg 100 Mg Oral Twice A Day 60 08/23/16 Social History Social History Problem Response Recorded Date/Time Alcohol Use Denies Use 08/21/2016 8:30pm Recreational Drug Use No 08/21/2016 8:30pm Recent Foreign Travel No 08/21/2016 8:05pm Recent Infectious Disease Exposure No 08/21/2016 8:05pm Smoking Status Never a Smoker 08/21/2016 8:30pm Recent Hopitalizations No 08/21/2016 8:30pm Query Response Start Date Stop Date Smoking Status Never a Smoker Hospital Discharge Instructions Patient Instructions Physician Instructions New, Converted or Re-Newed RX: RX on Chart Additional Follow Up: Yes Orders/Referrals 10-[address] Mae [address] Mae Activity: Activity as Tolerated Driving Instructions: No Driving for 1 Week (or while taking narcotic pain medications) NO SMOKING: NO SMOKING Nothing Inside Vagina: No Douching, No [place], No Tampons Other Activity No strenuous activity, no lifting > 10 lb Discharge Diet: No Restrictions Symptoms to Report to : Bleeding Excessive, Pain Increased, Fever Over 101 Degrees F, Pain/Pressure in Chest, Vaginal Bleeding Increase, Dizziness/Fainting, Nausea/Vomiting, Shortness of Breath For Any Problems or Questions: Contact Your Physician, Go to Emergency Room Infection Signs and Symptoms: Increased Redness, Foul Odor of Wound, Increased Drainage Operative Area Clean and Dry: Keep Incision Clean/Dry Stitches/Karina/Dermabond: Dermabond Bathing Instructions: Shower Plan of Care Discharge Date 08/25/16 12:40pm Disposition 01 HOME, SELF-CARE Instructions/Education Provided KEKE Your Baby Forms Provided PDI Prescriptions See Medication Section Referrals (Unspecified) - Reason(s) for Referral: 10-14 day follow up appointment with : September 06 @ 3:15 6 week post appointment with : October 04 @ 10:30. *new office location on 2nd floor of [facility]* Care Plan and Goals See Discharge Instructions Section Functional Status Query Response Date Recorded Patient Orientation Person Place Time Situation Eyes Open Normal For Age August 25, 2016 2:28pm Allergies, Adverse Reactions, Alerts No known allergies. Immunizations No immunization records. Vital Signs Acute Vital Signs Vital Response Date/Time Temperature (Fahrenheit) 97.6 degrees F (97.6 - 99.5) 08/25/2016 12:40pm Temperature (Calculated Celsius) 36.50205 degrees C (36.4 - 37.5) 08/25/2016 9:25am Temperature Source Temporal 08/25/2016 12:40pm Pulse Rate (adult) 68 bpm (60 - 90) 08/25/2016 12:40pm Respiratory Rate 18 bpm (12 - 24) 08/25/2016 12:40pm O2 Sat by Pulse Oximetry 94 % (88 - 100) 08/25/2016 12:40pm Blood Pressure 97/55 mm Hg 08/25/2016 12:40pm Blood Pressure Mean 85 mm Hg 08/25/2016 9:25am Pain Numeric Pain Scale 3 08/25/2016 12:40pm Height (Feet) 5 feet 08/21/2016 8:05pm Height (Inches) 3.00 inches 08/21/2016 8:05pm Height (Calculated Centimeters) 160.731091 cm 08/21/2016 8:05pm Weight (Pounds) 192 pounds 08/21/2016 8:05pm Weight (Ounces) 8.0 oz 08/21/2016 8:05pm Weight (Calculated Grams) 95519.53 gm 08/21/2016 8:05pm Weight (Calculated Kilograms) 87.346019 kilograms 08/21/2016 8:05pm Calculated BMI 34.1 08/21/2016 8:05pm Results Laboratory Results Test Name Result Units Flags Reference Collection Date/Time Result Date/ Time Comments White Blood Count 26.0 10^3/uL H 4.3-11.0 08/24/2016 5:13am 08/24/2016 6: 00am Red Blood Count 3.09 10^6/uL L 4.35-5.85 08/24/2016 5:13am 08/24/2016 6: 00am Hemoglobin 9.9 G/DL L 11.5-16.0 08/24/2016 5:13am 08/24/2016 6:00am Hematocrit 29 % L 35-52 08/24/2016 5:13am 08/24/2016 6:00am Mean Corpuscular Volume 95 FL 80-99 08/24/2016 5:13am 08/24/2016 6: 00am Mean Corpuscular Hemoglobin 32 PG 25-34 08/24/2016 5:13am 08/24/2016 6: 00am Mean Corpuscular Hemoglobin Concent 34 G/DL 32-36 08/24/2016 5:13am 6:00am Red Cell Distribution Width 13.0 % 10.0-14.5 08/24/2016 5:13am 2016 6:00am Platelet Count 288 10^3/uL 130-400 08/24/2016 5:08/24/2016 6:00am Mean Platelet Volume 10.3 FL 7.4-10.4 08/24/2016 5:08/24/2016 6: 00am Neutrophils (%) (Auto) 83 % H 42-75 08/24/2016 5:08/24/2016 6:00am Lymphocytes (%) (Auto) 9 % L 12-44 08/24/2016 5:08/24/2016 6:00am Monocytes (%) (Auto) 7 % 0-12 08/24/2016 5:08/24/2016 6:00am Eosinophils (%) (Auto) 0 % 0-10 08/24/2016 5:08/24/2016 6:00am Basophils (%) (Auto) 0 % 0-10 08/24/2016 5:08/24/2016 6:00am Neutrophils # (Auto) 21.7 X 10^3 H 1.8-7.8 08/24/2016 5:08/24/2016 6 :00am Lymphocytes # (Auto) 2.3 X 10^3 1.0-4.0 08/24/2016 5:08/24/2016 6: 00am Monocytes # (Auto) 1.9 X 10^3 H 0.0-1.0 08/24/2016 5:08/24/2016 6: 00am Eosinophils # (Auto) 0.0 10^3/uL 0.0-0.3 08/24/2016 5:08/24/2016 6 :00am Basophils # (Auto) 0.0 10^3/uL 0.0-0.1 08/24/2016 5:08/24/2016 6: 00am Neutrophils % (Manual) 78 % 08/21/2016 8:30pm 08/21/2016 10:49pm Band Neutrophils 0 % 08/21/2016 8:30pm 08/21/2016 10:49pm Lymphocytes % (Manual) 16 % 08/21/2016 8:30pm 08/21/2016 10:49pm Monocytes % (Manual) 5 % 08/21/2016 8:30pm 08/21/2016 10:49pm Eosinophils % (Manual) 1 % 08/21/2016 8:30pm 08/21/2016 10:49pm Basophils % (Manual) 0 % 08/21/2016 8:30pm 08/21/2016 10:49pm Blood Morphology Comment NORMAL 08/21/2016 8:30pm 08/21/2016 10: 49pm Procedures Procedure Status Date Provider(s) section Completed 08/23/16 MARIA EUGENIA MAE MD Encounters Encounter Location Arrival/Admit Date Discharge/Depart Date Attending Provider Discharged Inpatient [facility] 08/21/16 8:23pm 12:40pm MARIA EUGENIA MAE MD
[2018-02-13] MEDS ORDERED: HYDROcodone/APAP 7.5 MG/325 MG (LORTAB, LORCET PLUS) TABLET PO ONE (20:00)
[2018-02-13] MEDS ORDERED: TETANUS,DIPTH,PERTUSS P/F (BOOSTRIX) 0.5 ML VIAL IM ONE (20:00)
--- NOTE | 2018-02-13 20:32 | ED Upper Extremity ---
General Chief Complaint: Laceration Stated Complaint: FINGER LACERATION / L INDEX Nursing Triage Note: LEFT INDEX LACERATION, CUT MEDIAL/DISTAL INDEX FINGER OFF. Nursing Sepsis Screen: No Definite Risk Source: patient Exam Limitations: no limitations History of Present Illness Date Seen by Provider: Feb 13, 2018 Time Seen by Provider: 19:40 Initial Comments Patient is a 37-year-old female who presents to the emergency room with complaints of laceration to her left second finger. She reports that when she was cooking dinner this evening she cut the tip of her finger off. Bleeding is controlled with pressure. Onset: just prior to arrival Pain/Injury Location: left 2nd finger Method of Injury: incised Allergies and Home Medications Allergies Coded Allergies: No Known Drug Allergies (Unverified , 09/05/16) Home Medications Cephalexin 500 Mg Capsule, 500 MG PO BID Prescribed by: STEVEN COYNE on 02/13/182041 Cholecalciferol (Vitamin D3) 1,000 Unit Capsule, 1,000 UNIT PO DAILY, (Reported) Docusate Sodium 100 Mg Capsule, 100 MG PO BID Prescribed by: MARIA EUGENIA VALERA on 08/23/161721 Escitalopram Oxalate 10 Mg Tablet, 10 MG PO DAILY Prescribed by: MARIA EUGENIA VALERA on 08/23/161718 Ferrous Sulfate 325 Mg Tablet, 325 MG PO DAILY, (Reported) Hydrocodone Bit/Acetaminophen 1 Tab Tab, 1 EACH PO Q4H PRN for PAIN Prescribed by: STEVEN COYNE on 02/13/182041 Ibuprofen 600 Mg Tablet, 600 MG PO Q6H PRN for PAIN Prescribed by: MARIA EUGENIA VALERA on 08/23/161718 Lactobacillus Combination No.4 1 Each Capsule, 1 EACH PO DAILY, (Reported) Lansoprazole 30 Mg Capsule.dr, 30 MG PO DAILY, (Reported) Oxycodone HCl/Acetaminophen 1 Each Tablet, 1-2 EACH PO Q4H PRN for PAIN Prescribed by: MARIA EUGENIA VALERA on 08/23/161718 Patient Home Medication List Home Medication List Reviewed: Yes Constitutional: see HPI; No chills, No fever Skin: see HPI, other (laceration to the left index finger) All Other Systems Reviewed Negative Unless Noted: Yes Past Ldcmfxv-Lolkbs-Wtvdan Hx Past Med/Social Hx: Reviewed Nursing Past Med/Soc Hx Patient Social History Alcohol Use: Denies Use Recreational Drug Use: No Smoking Status: Never a Smoker 2nd Hand Smoke Exposure: No Recent Foreign Travel: No Contact w/Someone Who Travel: No Recent Infectious Disease Expo: No Recent Hopitalizations: No Immunizations Up To Date Tetanus Booster (TDap): Unknown PED Vaccines UTD: Yes Seasonal Allergies Seasonal Allergies: Yes Past Medical History Surgeries: Yes Section, Orthopedic Respiratory: No Cardiac: No Neurological: No Genitourinary: No Gastrointestinal: No Musculoskeletal: Yes (ACL REPAIR) Endocrine: No HEENT: No Cancer: No Psychosocial: Yes Depression Integumentary: No Blood Disorders: No Family Medical History Reviewed Nursing Family Hx FH: thyroid disease 19 MOTHER Hypertension 19 FATHER 19 MOTHER Physical Exam Vital Signs Vital Signs - First Documented 02/13/18 19:40 Temp 97.4 Pulse 72 Resp 18 B/P (MAP) 123/66 (85) Pulse Ox 99 O2 Delivery Room Air Capillary Refill : Less Than 3 Seconds Height, Weight, BMI Height: 5'6.00" Weight: 170lbs. oz. 77.855976ut; BMI Method:Stated General Appearance: WD/WN, no apparent distress Cardiovascular: regular rate, rhythm, no edema, no gallop, no JVD, no murmur Respiratory: chest non-tender, lungs clear, normal breath sounds, no respiratory distress, no accessory muscle use Neurologic/Psychiatric: alert, normal mood/affect, oriented x 3 Skin: normal color, warm/dry, other Procedures/Interventions Wound Location: Upper Extremities Other Wound Location Left second finger Wound Length (cm): 0.5 Wound's Depth, Shape: nail-avulsed (avulsion to the left second finger there is approximately a 0.5 x 0.5 circular avulsion.) Other Closure Supply: Wound Adhesive Progress The avulsion was cleaned and irrigated with approximately 100 mL of normal saline and betasept. A finger tourniquet was applied to control bleeding wound adhesive was put over the avulsion area. Finger tourniquet was removed and the bleeding remained controlled. Progress/Results/Core Measures Results/Orders My Orders Medications Given in ED Vital Signs/I&O Blood Pressure Mean: 85 Progress Progress Note : Progress Note I have seen and evaluated the patient. She has been updated on tetanus. She was placed in a finger splint for comfort. She agrees with plan of care, follow up with Dr. Thornton. Pain medication has been prescribed. Return precautions were given. Diagnostic Imaging Diagonstic Imaging: Xray Plain Films/CT/US/NM/MRI: hand Consults : Consults Notes NAME: EZ SHEIKH [facility] REC#: [id number] PT STATUS: DEP ER : 1980 PHYSICIAN: STEVEN COYNE ADMIT DATE: 02/13/18/ER Signed Date of Exam: 02/13/18 FINGER(S) EXAMINATION: Left fingers at 8:30 PM INDICATION: Laceration Three views were obtained. There are no prior studies available for comparison. By history, the patient has suffered laceration injury to the tip of the second digit. There is a soft tissue defect in this area but there is no sign of a fracture. There is no radiopaque foreign body identified either. IMPRESSION: There is a soft tissue injury to the tip of the second digit but there is no evidence for a fracture or for a radiopaque foreign body. Dictated by: Dictated on workstation # [id number] Dict: 02/13/182022 Trans: 02/13/182231 Interpreted by: GEMINI MENDEZ MD Electronically signed by: GEMINI MENDEZ MD 02/13/182231 Departure Impression Primary Impression: Skin avulsion Disposition: 01 HOME, SELF-CARE Condition: Stable/Unchanged Departure-Patient Inst. Decision time for Depature: 20:41 Referrals: MARIA EUGENIA VALERA MD (PCP) Primary Care Physician Patient Instructions: SKIN AVULSION Add. Discharge Instructions: Take medications as directed. Follow-up with Dr. THORNTON within 1 week for recheck. Return back to the emergency room for any worsening symptoms or any other concerns as needed. All discharge instructions reviewed with patient and/ or family. Voiced understanding. Scripts Hydrocodone Bit/Acetaminophen (Hydrocodone/Acetaminophen 5/325mg Tablet) 1 Tab Tab 1 EACH PO Q4H PRN for PAIN, #20 TAB Prov: STEVEN COYNE 02/13/18 Cephalexin (Keflex) 500 Mg Capsule 500 MG PO BID for 7 Days, #20 CAP Prov: STEVEN COYNE 02/13/18 Images Extremities-Upper 1 - Laceration, Other-See Progress Note STEVEN COYNE Feb 13, 2018 20:32
--- NOTE | 2018-02-13 20:36 | Diagnostic Imaging Report ---
EXAMINATION: Left fingers at 8:30 PM INDICATION: Laceration Three views were obtained. There are no prior studies available for comparison. By history, the patient has suffered laceration injury to the tip of the second digit. There is a soft tissue defect in this area but there is no sign of a fracture. There is no radiopaque foreign body identified either. IMPRESSION: There is a soft tissue injury to the tip of the second digit but there is no evidence for a fracture or for a radiopaque foreign body. Dictated by: Dictated on workstation # [id number]
[2018-02-13] MEDS ORDERED: ACHD5005 PO (20:42)
[2018-02-13] MEDS ORDERED: CEPH-507 PO (20:42)
[2018-02-13] MEDS ORDERED: CEPHALEXIN 250 MG (KEFLEX) CAP PO ONE (20:45)
[2018-02-13] MEDS ORDERED: RX-HYDROCODONE/APAP 5/325 MG #4 TAB PK PO PRN (20:45)
[2018-02-13] MEDS ORDERED: RX-HYDROCODONE/APAP 5/325 MG #4 TAB PK PO ONE (20:45)
[2018-02-13 20:53] VITALS: BP 123/66
== END 2018-02-13 21:06 | disposition home or self-care (01) ==
LOC: EDUNIT# 19:15 → ER 19:17
DX: S61.211A Laceration without foreign body of left index finger without damage to nail, initial encounter (principal); F32.9 Major depressive disorder, single episode, unspecified; Z98.890 Other specified postprocedural states; W26.8XXA Contact with other sharp object(s), not elsewhere classified, initial encounter; Y93.G9 Activity, other involving cooking and grilling
CPT/HCPCS: 73140; 90715

== ENCOUNTER 2019-07-02 11:00 | Outpatient (CLI) | payer BC ==
[~2019-07-02] VITALS: Ht 160 cm; Wt 62.7 kg
[~2019-07-02 11:00] MED LIST changes: +ACHD5005 PO; +CEPH-507 PO; -OXYC-197 PO; +OXYC1TAB87 PO
[2019-07-02] MEDS ORDERED: JUICE PLUS PO (11:58)
[2019-07-02] MEDS ORDERED: CETI10TA17 PO (11:58)
[2019-07-02] MEDS ORDERED: ESCI10TA PO (11:58)
== END 2019-07-02 12:00 | disposition home or self-care (01) ==
LOC: PREOP 11:00
PROVIDERS: ATTEND Surgery
DX: Z01.818 Encounter for other preprocedural examination (principal)

== ENCOUNTER → 2020-01-27 | Outpatient (CLI) | payer BC ==
[~2020-01-27] MED LIST changes: +CETI10TA17 PO; +JUICE PLUS PO; +PANT40TA2 PO
--- NOTE | 2020-01-27 09:04 | Diagnostic Imaging Report ---
INDICATION: Routine screening. COMPARISON: No prior mammograms are available for comparison. This is a baseline study. TECHNIQUE: 2D and 3D bilateral screening mammography was performed with CAD. FINDINGS: Both breasts are heterogeneously dense, limiting the sensitivity of mammography. Occasional benign calcifications are noted. No mass or malignant appearing microcalcifications are seen. The axillae are unremarkable. IMPRESSION: No mammographic features suspicious for malignancy are identified. ACR BI-RADS Category 2: Benign findings. Result letter will be mailed to the patient. Note: At least 10% of breast cancer is not imaged by mammography. Dictated by: Dictated on workstation # [id number]
== END ==
LOC: RAD 07:17
PROVIDERS: ATTEND Obstetrics & Gynecology
DX: Z12.31 Encounter for screening mammogram for malignant neoplasm of breast (principal)
CPT/HCPCS: 77063; 77067

== ENCOUNTER → 2021-03-01 | Outpatient (CLI) | payer BC ==
--- NOTE | 2021-03-01 11:05 | Diagnostic Imaging Report ---
PROCEDURE: Pelvic comp/transvaginal sonogram. TECHNIQUE: Complete transabdominal and transvaginal pelvic ultrasound was performed. In addition, limited pelvic Doppler was performed. INDICATION: Pelvic pain, right greater than left. FINDINGS: The uterus measures 8.3 x 3.1 x 5.0 cm. An IUD is centered in the endometrial canal. No myometrial mass is detected. The right ovary measures 3.4 x 1.7 x 2.3 cm and the left ovary measures 3.6 x 2.4 x 3.4 cm. The right ovary does contain a 2.3 cm cyst. The left ovary contains a 3.4 cm cyst. Both cysts appear to be fairly simple. There is blood flow to both ovaries. Trace free pelvic fluid is noted. IMPRESSION: 1. The IUD is appropriately centered in the endometrial canal. 2. Bilateral ovarian cysts. Dictated by: Dictated on workstation # [id number]
--- NOTE | 2021-03-01 11:25 | Diagnostic Imaging Report ---
INDICATION: Routine screening. Comparison is made to prior mammogram 01/27/2020. 2-D and 3-D bilateral screening mammography was performed with CAD. Both breasts are heterogeneously dense, limiting the sensitivity of mammography. Occasional benign calcifications are noted in both breasts. No mass or malignant-appearing microcalcifications are seen. Axillae are unremarkable. IMPRESSION: BI-RADS Category 2 No mammographic features suspicious for malignancy are identified. ACR BI-RADS Category 2: Benign findings. Result letter will be mailed to the patient. Note: At least 10% of breast cancer is not imaged by mammography. Dictated by: Dictated on workstation # [id number]
== END ==
LOC: RAD 09:29
PROVIDERS: ATTEND Obstetrics & Gynecology
DX: Z12.31 Encounter for screening mammogram for malignant neoplasm of breast (principal); N83.202 Unspecified ovarian cyst, left side; N83.201 Unspecified ovarian cyst, right side
CPT/HCPCS: 76830; 76856; 77063; 77067

== ENCOUNTER → 2022-07-06 | Outpatient (CLI) | payer BC ==
--- NOTE | 2022-07-06 20:35 | Diagnostic Imaging Report ---
INDICATION: Routine screening. COMPARISON: Prior mammograms from 03/01/2021 and 01/27/2020. EXAMINATION: 2D and 3D bilateral screening mammography was performed with CAD. The current study was also evaluated with a Computer Aided Detection (CAD) system. FINDINGS: Both breasts are heterogeneously dense, limiting the sensitivity of mammography. There is a cluster of microcalcifications in the inner aspect of the right breast at mid depth which appears slightly increased when compared with prior mammogram. The left breast appears stable. No mass is identified. Axillae are unremarkable. IMPRESSION: Increasing calcifications in the inner right breast. Additional views are recommended for further evaluation. ACR BI-RADS Category 0: Incomplete. (Needs additional imaging evaluation). Result letter will be mailed to the patient. Note: At least 10% of breast cancer is not imaged by mammography. Dictated by: Dictated on workstation # [id number]
== END ==
LOC: RAD 10:11
PROVIDERS: ATTEND Obstetrics & Gynecology
DX: Z12.31 Encounter for screening mammogram for malignant neoplasm of breast (principal); R92.1 Mammographic calcification found on diagnostic imaging of breast
CPT/HCPCS: 77063; 77067

== ENCOUNTER → 2022-07-13 | Outpatient (CLI) | payer BC ==
--- NOTE | 2022-07-13 14:27 | Diagnostic Imaging Report ---
Indication: Right breast calcifications. Patient presents for additional views. Correlation is made with screening study from 07/06/2022. Unilateral right 2-D and 3-D diagnostic mammography was performed. This included magnification CC and ML views as well as 90 degree lateral views. Calcifications in the upper and inner aspect of the right breast at mid to posterior depth are again visualized and appear to show some layering on the lateral view consistent with milk of calcium. No suspicious microcalcifications are seen. No associated soft tissue mass is identified. IMPRESSION: BI-RADS Category 2 Calcifications in the upper inner right breast appear to represent milk of calcium. Patient may return to routine annual screening mammography. ACR BI-RADS Category 2: Benign findings. Result letter will be mailed to the patient. Note: At least 10% of breast cancer is not imaged by mammography. Dictated by: Dictated on workstation # [id number]
== END ==
LOC: RAD 12:53
PROVIDERS: ATTEND Obstetrics & Gynecology
DX: R92.1 Mammographic calcification found on diagnostic imaging of breast (principal)
CPT/HCPCS: 77065; G0279